=== PATIENT | male | born 1985 ===

== ENCOUNTER 2017-05-08 06:50 | Emergency (ER) | payer OTHER ==
[2017-05-08 07:05] VITALS: TEMP 98.9
[2017-05-08] MEDS: Sodium Chloride 0.9% 1,000 ML IV STA (08:06)
--- NOTE | 2017-05-08 08:11 | ED PDOC ---
HPI: Male Pain Time Seen by Provider: 05/08/17 07:13 Chief Complaint (Nursing): Back Pain Chief Complaint (Provider): Back Pain History Per: Patient History/Exam Limitations: no limitations Onset/Duration Of Symptoms: Days (2 weeks) Current Symptoms Are (Timing): Still Present Quality Of Discomfort: "Pain" Associated Symptoms: Chills, Nausea, Urinary Symptoms. denies: Vomiting, Diarrhea, Loss Of Appetite, Chest Pain Additional History Per: Patient Additional Complaint(s): Patient is a 31 year old male, without significant past medical history, presents to ED for evaluation of bilateral flank pain for the past 2 weeks but worse since last night. Pt notes that pain is worse with movement, and radiates down to bilateral buttocks. Pt reports difficulty urinating, dysuria, fever, chills, and nausea. Notes taking unknown medication yesterday but has not taken any other medications over the past 2 weeks. Denies abdominal pain, vomiting, diarrhea, chest pain, extremity weakness/numbness, difficulty ambulating, trauma , or injury. Past Medical History Reviewed: Historical Data, Nursing Documentation, Vital Signs Vital Signs: Last Vital Signs Temp 98.9 F 05/08/17 07:03 Pulse 88 05/08/17 07:03 Resp 16 05/08/17 07:03 BP 128/69 05/08/17 07:03 Pulse Ox 96 05/08/17 07:03 - Medical History PMH: No Chronic Diseases - Surgical History Surgical History: No Surg Hx - Family History Family History: States: No Known Family Hx - Home Medications Home Medications: Ambulatory Orders Medication Instructions Recorded Ciprofloxacin HCl [Cipro] 500 mg PO BID #14 tab 05/08/17 Naproxen 500 mg PO BID #20 tab 05/08/17 - Allergies Allergies/Adverse Reactions: Allergies Allergy/AdvReac Type Severity Reaction Status Date / Time No Known Allergies Allergy Verified 05/08/17 07:02 Review of Systems Constitutional: Positive for: Fever, Chills Cardiovascular: Negative for: Chest Pain, Palpitations Respiratory: Negative for: Cough, Shortness of Breath Gastrointestinal: Positive for: Nausea. Negative for: Vomiting, Abdominal Pain , Diarrhea, Constipation Genitourinary Male: Positive for: Dysuria. Negative for: Hematuria, Penile Discharge Musculoskeletal: Positive for: Back Pain (bilateral flank pain) Neurological: Negative for: Weakness, Numbness Physical Exam - Reviewed Nursing Documentation Reviewed: Yes Vital Signs Reviewed: Yes - Physical Exam Appears: Positive for: Non-toxic, No Acute Distress Head Exam: Positive for: ATRAUMATIC, NORMOCEPHALIC Skin: Positive for: Normal Color, Warm, Dry Eye Exam: Positive for: Normal appearance, EOMI Neck: Positive for: Painless ROM, Supple Cardiovascular/Chest: Positive for: Regular Rate, Rhythm. Negative for: Murmur Respiratory: Positive for: Normal Breath Sounds. Negative for: Rales, Rhonchi, Wheezing, Respiratory Distress Gastrointestinal/Abdominal: Positive for: Soft. Negative for: Tenderness Back: Positive for: L CVA Tenderness, R CVA Tenderness. Negative for: Vertebral Tenderness Extremity: Positive for: Normal ROM Neurologic/Psych: Positive for: Alert, Oriented. Negative for: Motor/Sensory Deficits - Laboratory Results Result Diagrams: 05/08/17 08:05 05/08/17 08:05 - ECG O2 Sat by Pulse Oximetry: 96 (RA) Pulse Ox Interpretation: Normal - Progress Re-evaluation Time: 11:00 Condition: Re-examined, Improved Medical Decision Making Medical Decision Making: Impression: 31 year old male, with no PMHx, complaints of bilateral flank pain, and dysuria. Differential Diagnosis: UTI, musculoskeletal back pain Plan: * Blood work * Blood/urine culture * Toradol, IV fluids * Reassess and disposition Abd & Pelvis CT Accession No. : [id number] Patient Name / ID : LASHANDA GUERRERO / [id number] Exam Date : 05/08/2017 09:26:02 ( Approved ) Study Comment : Sex / Age : M / 31Y Creator : Mike Trujillo MD Dictator : Mike Trujillo MD Clinical Manager : Automatic Trimming Sewer : Mike Trujillo MD Approver2 : Report Date : 05/08/2017 10:49:40 My Comment : PROCEDURE: CT Abdomen and Pelvis with contrast HISTORY: Fever, flank pain dysuria COMPARISON: None. TECHNIQUE: Contrast dose: 95 cc Omnipaque 300 Radiation dose: Total exam DLP = 684.77 mGy-cm. This CT exam was performed using one or more of the following dose reduction techniques: Automated exposure control, adjustment of the mA and/or kV according to patient size, and/or use of iterative reconstruction technique. FINDINGS: LOWER THORAX: Unremarkable. LIVER: Unremarkable. No gross lesion or ductal dilatation. Incidental finding(s): Tiny cysts none larger than 5 mm. GALLBLADDER AND BILE DUCTS: Unremarkable. PANCREAS: Unremarkable. No gross lesion or ductal dilatation. SPLEEN: Unremarkable. ADRENALS: Unremarkable. No mass. KIDNEYS AND URETERS: Unremarkable. No hydronephrosis. No solid mass. VASCULATURE: Unremarkable. No aortic aneurysm. BOWEL: Unremarkable. No obstruction. No gross mural thickening. APPENDIX: Normal appendix. PERITONEUM: Unremarkable. No free fluid. No free air. LYMPH NODES: Unremarkable. No enlarged lymph nodes. BLADDER: Unremarkable. REPRODUCTIVE: Unremarkable. BONES: No acute fracture. OTHER FINDINGS: None. IMPRESSION: No significant or acute findings to account for/ related to the clinical presentation. Additional benign and/or incidental findings described above. There is no evidence of pyelonephritis, calculus disease, obstructive uropathy. No abnormalities detected with respect to the urinary bladder or prostate. Scribe Attestation: Documented by Suki Robbins, acting as a scribe for Real Vila MD Provider Scribe Attestation: All medical record entries made by the Scribe were at my direction and personally dictated by me. I have reviewed the chart and agree that the record accurately reflects my personal performance of the history, physical exam, medical decision making, and the department course for this patient. I have also personally directed, reviewed, and agree with the discharge instructions and disposition. Disposition - Clinical Impression Clinical Impression: Back pain, UTI (urinary tract infection), Viral syndrome - Patient ED Disposition Is Patient to be Admitted: No Doctor Will See Patient In The: Office Counseled Patient/Family Regarding: Studies Performed, Diagnosis, Need For Followup - Disposition Referrals: [facility] [Outside] Disposition: Routine/Home Disposition Time: 11:12 Condition: GOOD Additional Instructions: Take your medications as instructed., Follow up with your PCP in 2-3 days. Prescriptions: Ciprofloxacin HCl [Cipro] 500 mg PO BID #14 tab Naproxen 500 mg PO BID #20 tab Instructions: Urinary Tract Infection in Men (DC), Viral Syndrome (ED), Back Pain (ED) Print Language: SYRIAC
[2017-05-08 08:27] LABS: BASO % 0.7 % (0.0-2.0); EOS % 0.9 % (0.0-4.0); HEMATOCRIT 44.4 % (35.0-51.0); LYMPH # 0.9 K/uL (1.0-4.3); LYMPH % 21.3 % (20.0-40.0); MEAN CELL VOLUME 85.8 fl (80.0-94.0); MEAN CORPUSCULAR HEMOGLOBIN 29.4 pg (27.0-31.0); MEAN CORPUSCULAR HGB CONC 34.2 g/dL (33.0-37.0); MEAN PLATELET VOLUME 8.5 fl (7.2-11.7); MONO # 0.8 K/uL (0.0-0.8); MONO % 20.2 % (0.0-10.0); NEUT # 2.3 K/uL (1.8-7.0); NEUT % 56.9 % (50.0-75.0); NRBC % 0.1 % (0.0-0.0); PLATELET COUNT 141 K/uL (130-400); RED CELL DISTRIBUTION WIDTH 12.8 % (11.5-14.5)
[2017-05-08 08:35] LABS: BLOOD UREA NITROGEN 10 mg/dl (9-20); CALCIUM 9.1 mg/dL (8.4-10.2); CARBON DIOXIDE 28 mmol/L (22-30); CHLORIDE 104 mmol/L (98-107); GFR AFRICAN-AMERICAN > 60; GLUCOSE,RANDOM 98 mg/dL (75-110); POTASSIUM 4.5 MMOL/L (3.6-5.0); SODIUM 141 mmol/l (132-148)
[2017-05-08 08:57] LABS: BASOPHIL 1 % (0-2); NEUTROPHIL 64 % (42-75); REACTIVE LYMPHOCYTES 2 % (0-0); TOTAL CELLS COUNTED 100
[2017-05-08] MEDS ORDERED: Iohexol 300 100 ML IJ ONE (09:30)
--- NOTE | 2017-05-08 10:51 | CT ---
PROCEDURE: CT Abdomen and Pelvis with contrast HISTORY: Fever, flank pain dysuria COMPARISON: None. TECHNIQUE: Contrast dose: 95 cc Omnipaque 300 Radiation dose: Total exam DLP = 684.77 mGy-cm. This CT exam was performed using one or more of the following dose reduction techniques: Automated exposure control, adjustment of the mA and/or kV according to patient size, and/or use of iterative reconstruction technique. FINDINGS: LOWER THORAX: Unremarkable. LIVER: Unremarkable. No gross lesion or ductal dilatation. Incidental finding(s): Tiny cysts none larger than 5 mm. GALLBLADDER AND BILE DUCTS: Unremarkable. PANCREAS: Unremarkable. No gross lesion or ductal dilatation. SPLEEN: Unremarkable. ADRENALS: Unremarkable. No mass. KIDNEYS AND URETERS: Unremarkable. No hydronephrosis. No solid mass. VASCULATURE: Unremarkable. No aortic aneurysm. BOWEL: Unremarkable. No obstruction. No gross mural thickening. APPENDIX: Normal appendix. PERITONEUM: Unremarkable. No free fluid. No free air. LYMPH NODES: Unremarkable. No enlarged lymph nodes. BLADDER: Unremarkable. REPRODUCTIVE: Unremarkable. BONES: No acute fracture. OTHER FINDINGS: None. IMPRESSION: No significant or acute findings to account for/ related to the clinical presentation. Additional benign and/or incidental findings described above. There is no evidence of pyelonephritis, calculus disease, obstructive uropathy. No abnormalities detected with respect to the urinary bladder or prostate.
[2017-05-08 11:42] VITALS: BP 126/70; PULSE 82; RESP 18
[2017-05-10 10:45] VITALS: O2SAT 96
== END 2017-05-08 11:39 | disposition home or self-care (01) ==
LOC: H.ER 06:50
DX: N39.0 Urinary tract infection, site not specified (principal); B34.9 Viral infection, unspecified
CPT/HCPCS: 74177; 80048; 85025; 87040; 87086; 96374; 99284; J1885; J7040; Q9967